=== PATIENT | male | born 1990 | race Caucasian/White ===

== ENCOUNTER 2020-06-13 14:42 | Inpatient (IN) | payer BC, OTHER ==
[~2020-06-13] VITALS: Ht 182.9 cm; Wt 57.6 kg
--- NOTE | 2020-06-13 15:05 | NUR ---
PT PLACED ON BP CUFF, PULSE OX ON ARRIVAL. WAYNE FROM [place] AT BS. SITTER AT DOORWAY FOR CLOSE OBSERVATION.
--- NOTE | 2020-06-13 15:31 | NUR ---
PT TO AND FROM CT WITH SECURITY.
--- NOTE | 2020-06-13 15:40 | NUR ---
MOTHER AT BS. ERP NOTIFIED. AWAITING CT READS
--- NOTE | 2020-06-13 15:56 | NUR ---
CT RESULTS RECHECK.
[2020-06-13] MEDS ORDERED: SODIUM CHLORIDE FLUSH 10ML SYR IVF ONE (17:30)
[2020-06-13] MEDS ORDERED: SODIUM CHLORIDE 0.9% 1,000ML IVBOLUS ONE (17:30)
--- NOTE | 2020-06-13 17:33 | NUR ---
PER ERP, DR SCALES IN TO SEE PT AT 1830 TO EVALUATE. PER PARENT REQUEST, IV PLACED AND IVF GIVEN. SECURITY CALLED TO ROTATE RESTRAINT SITES.
--- NOTE | 2020-06-13 17:35 | NUR ---
PT REFUSING IV. THIS DISCUSSED WITH DR BARNETT. REVIEW OF LABS AND VS. PER DR BARNETT, PT CAN REFUSE IV.
--- NOTE | 2020-06-13 18:21 | NUR ---
MAX/FAC SPECIALIST IN TO SEE PT.
--- NOTE | 2020-06-13 18:58 | NUR ---
BEDSIDE REPORT FROM HARSHIL KRUGER
[2020-06-13] MEDS ORDERED: SODIUM CHLORIDE 0.9% 1,000 ML IV ONE (19:00)
[2020-06-13] MEDS ORDERED: HALOPERIDOL 5 MG/ML IM ONE (19:00)
[2020-06-13] MEDS ORDERED: CEFTRIAXONE PMX 1GM/50ML 50 ML IVPB ONE (19:00)
--- NOTE | 2020-06-13 19:00 | NUR ---
THROUGHPUT RN: IVAN HERNANDEZ, NURSING [facility] [employer] AT [facility] WHO STATES PT IS CURRENTLY ADMITTED TO [facility]. SINCE PT HAS TO BE ADMITTED TO [facility] PT WILL THEREFORE BE DC'D FROM [facility] AND [facility] SITTER WILL DEPART. ONCE PT IS MEDICALLY CLEARED, PT PSYCH PACKET AND LEGAL HOLD WILL HAVE TO BE FAXED OUT TO PSYCH [facility] NEW PT.
--- NOTE | 2020-06-13 19:02 | NUR ---
PER DR BARNETT, PT TO BE ADMITTED AND RECEIVE IVF AND ANTIBIOTICS. PER ERP AND TANK, PT UNABLE TO REFUSE IV. VALET ATTENDANT TO START LINE. REPORT TO MARILEE KRUGER, TRANSFER OF CARE AT THIS TIME.
--- NOTE | 2020-06-13 19:05 | NUR ---
PT SUPINE ON GARIMA DAVALOS, VSS. PT RESTING WITH EYES CLOSED. NO NEEDS AT THIS TIME. RESTRAINTS IN PLACE, CSM INTACT. PT DENIES ANY NEEDS AT THIS TIME. SITTER IN VIEW.
[2020-06-13] MEDS ORDERED: DIPH25CA61 IM (19:20)
[2020-06-13] MEDS ORDERED: OLAN5TAB3 PO (19:20)
[2020-06-13] MEDS ORDERED: SULF-23 PO (19:20)
[2020-06-13] MEDS ORDERED: HALO5AMP3 IM (19:20)
[2020-06-13] MEDS ORDERED: LORA2VIA6 IM/IV (19:20)
[2020-06-13] MEDS ORDERED: HALO5TAB5 PO (19:20)
[2020-06-13] MEDS ORDERED: ARIP20TA5 PO (19:20)
[2020-06-13] MEDS ORDERED: MIRT-37 PO (19:20)
[2020-06-13] MEDS ORDERED: OLAN5TAB3 IM (19:20)
[2020-06-13] MEDS ORDERED: CEPH750C9 PO (19:20)
[2020-06-13 19:24] LABS: BASOPHILS % (AUTO) 1 % (0-1); EOSINOPHILS % (AUTO) 1 % (1-7); LYMPHOCYTES % (AUTO) 20 % (22-44); MEAN CORPUSCULAR HEMOGLOBIN 30.1 pg (27.5-34.5); MEAN CORPUSCULAR HGB CONC 34.4 g/dL (33.2-36.2); MEAN PLATELET VOLUME 7.9 fL (7.4-10.4); MONOCYTES % (AUTO) 7 % (2-9); NEUTROPHILS % (AUTO) 71 % (42-75); PLATELET COUNT 338 x10^3/uL (130-400); RED CELL DISTRIBUTION WIDTH 12.9 % (9.4-14.8)
[2020-06-13] MEDS ORDERED: HALOPERIDOL 5 MG/ML IM PRN (19:30)
[2020-06-13] MEDS ORDERED: POLYETHYLENE GLYCOL 17 GM PACKET PO PRN (19:30)
[2020-06-13] MEDS: AMPICILLIN/SULBACTAM 3 GM in SODIUM CHLORIDE 0.9% 100 ML IV SCH (19:30)
[2020-06-13] MEDS ORDERED: ONDANSETRON 2MG/ML, 2ML IVPush PRN (19:30)
[2020-06-13] MEDS ORDERED: BISACODYL 10 MG SUPP PR PRN (19:30)
[2020-06-13] MEDS ORDERED: ACETAMINOPHEN 325 MG TABLET PO PRN (19:30)
[2020-06-13] MEDS ORDERED: HALOPERIDOL 5 MG/ML ONE (19:31)
[2020-06-13 19:36] LABS: ALANINE AMINOTRANSFERASE 21 U/L (12-78); ALBUMIN 3.4 g/dL (3.4-5.0); ANION GAP 6 mmol/L (5-15); CALCIUM 8.9 mg/dL (8.5-10.1); CHLORIDE 109 mmol/L (98-107); CREATININE 0.73 mg/dL (0.7-1.3)
[2020-06-13 19:38] LABS: ALKALINE PHOSPHATASE 77 U/L (45-117); BILIRUBIN,TOTAL 2.4 mg/dL (0.2-1.0); TOTAL PROTEIN 7.1 g/dL (6.4-8.2)
--- NOTE | 2020-06-13 20:03 | NUR ---
Pt to be admitted to MEDICAL, room 337. Report called to
[2020-06-13 22:15] VITALS: BP 92/59
[2020-06-13] MEDS: D5%-0.45% NACL 1,000 ML IV SCH (22:50)
[2020-06-14 00:04] VITALS: BP 118/72
[2020-06-14] MEDS: AMPICILLIN/SULBACTAM 3 GM in SODIUM CHLORIDE 0.9% 100 ML IV SCH ×4 (02:29→22:02)
[2020-06-14 07:58] VITALS: BP 105/56
[2020-06-14] MEDS: SENNA/DOCUSATE TABLET PO SCH (08:35)
[2020-06-14] MEDS: D5%-0.45% NACL 1,000 ML IV SCH (08:35)
[2020-06-14 12:45] VITALS: BP 111/62
[2020-06-14] MEDS ORDERED: LORazepam 2 MG/ML, 1ML ONE (13:12)
[2020-06-14] MEDS ORDERED: LORazepam 2 MG/ML, 1ML IVPush ONE ×2 (13:30)
[2020-06-14] MEDS: OLANZAPINE 10 MG INJ IM PRN ×2 (16:22→17:45)
[2020-06-14 18:45] VITALS: BP 107/55
[2020-06-15 01:15] VITALS: BP 102/56
[2020-06-15] MEDS: D5%-0.45% NACL 1,000 ML IV SCH (02:10)
[2020-06-15] MEDS: AMPICILLIN/SULBACTAM 3 GM in SODIUM CHLORIDE 0.9% 100 ML IV SCH ×4 (04:10→22:23)
[2020-06-15 05:21] LABS: BASOPHILS % (AUTO) 1 % (0-1); EOSINOPHILS % (AUTO) 6 % (1-7); LYMPHOCYTES % (AUTO) 30 % (22-44); MEAN CORPUSCULAR HEMOGLOBIN 30.5 pg (27.5-34.5); MEAN CORPUSCULAR HGB CONC 34.7 g/dL (33.2-36.2); MEAN PLATELET VOLUME 8.3 fL (7.4-10.4); MONOCYTES % (AUTO) 7 % (2-9); NEUTROPHILS % (AUTO) 56 % (42-75); PLATELET COUNT 284 x10^3/uL (130-400); RED BLOOD COUNT 4.04 x10^6/uL (4.38-5.82); RED CELL DISTRIBUTION WIDTH 12.3 % (9.4-14.8)
[2020-06-15 05:31] LABS: ALANINE AMINOTRANSFERASE 17 U/L (12-78); ALBUMIN 2.8 g/dL (3.4-5.0); ANION GAP 5 mmol/L (5-15); CALCIUM 8.5 mg/dL (8.5-10.1); CHLORIDE 110 mmol/L (98-107)
[2020-06-15 05:34] LABS: ALKALINE PHOSPHATASE 57 U/L (45-117); BILIRUBIN,TOTAL 1.5 mg/dL (0.2-1.0); CREATININE 0.62 mg/dL (0.7-1.3); TOTAL PROTEIN 5.9 g/dL (6.4-8.2)
[2020-06-15] MEDS: OLANZAPINE 10 MG INJ IM PRN ×2 (07:01→17:56)
[2020-06-15 07:06] VITALS: BP 105/63
[2020-06-15] MEDS: SENNA/DOCUSATE TABLET PO SCH (09:00)
[2020-06-15] MEDS: ARIPIPRAZOLE 10 MG TABLET PO SCH (09:00)
[2020-06-15 12:31] VITALS: BP 122/63
[2020-06-15] MEDS: D5%-0.45NACL+KCL 20MEQ 1,000 ML IV SCH (15:30)
[2020-06-15 19:11] VITALS: BP 113/73
[2020-06-16 02:39] VITALS: BP 110/67
[2020-06-16] MEDS: AMPICILLIN/SULBACTAM 3 GM in SODIUM CHLORIDE 0.9% 100 ML IV SCH ×4 (03:47→22:16)
[2020-06-16] MEDS: OLANZAPINE 10 MG INJ IM PRN ×2 (06:56→18:08)
[2020-06-16] MEDS: D5%-0.45NACL+KCL 20MEQ 1,000 ML IV SCH ×2 (07:56→19:54)
[2020-06-16] MEDS: SENNA/DOCUSATE TABLET PO SCH (09:00)
[2020-06-16] MEDS: ARIPIPRAZOLE 10 MG TABLET PO SCH (09:00)
[2020-06-16] MEDS ORDERED: ARIPIPRAZOLE 10 MG TABLET PO SCH (17:30)
[2020-06-16 18:38] VITALS: BP 115/67
[2020-06-17] MEDS: AMPICILLIN/SULBACTAM 3 GM in SODIUM CHLORIDE 0.9% 100 ML IV SCH (04:47)
[2020-06-17] MEDS ORDERED: ARIPIPRAZOLE 10 MG TABLET PO SCH (07:00)
[2020-06-17] MEDS: SENNA/DOCUSATE TABLET PO SCH (07:53)
[2020-06-17] MEDS ORDERED: ARIP10TA33 PO (16:54)
[2020-06-17] MEDS ORDERED: OLAN10VI2 IM (16:54)
== END 2020-06-17 17:56 | DRG 85 ==
LOC: ED 18:40 → EDIP 18:47 → ED 18:53 → 3N 20:16
PROVIDERS: ADMIT Internal Medicine; ATTEND Internal Medicine
DX: S02.0XXA Fracture of vault of skull, initial encounter for closed fracture (principal); E43 Unspecified severe protein-calorie malnutrition; F23 Brief psychotic disorder; Z68.1 Body mass index [BMI] 19.9 or less, adult; Z20.822 Contact with and (suspected) exposure to COVID-19; E86.0 Dehydration; D72.829 Elevated white blood cell count, unspecified; F25.9 Schizoaffective disorder, unspecified; F32.9 Major depressive disorder, single episode, unspecified; Z78.1 Physical restraint status; Z91.14 Patient's other noncompliance with medication regimen; X58.XXXA Exposure to other specified factors, initial encounter; Y93.89 Activity, other specified; Y92.89 Other specified places as the place of occurrence of the external cause; Y99.8 Other external cause status
CPT/HCPCS: 36415; 70450; 70486; 80053; 85025; 87426; 93005; 96372; 99285; G0378; J0295; J1630; J2060; J3480; J7030

== ENCOUNTER 2020-06-17 15:10 | Inpatient (IN) | payer OTHER ==
[~2020-06-17] VITALS: Ht 182.9 cm; Wt 52.0 kg
[~2020-06-17 15:10] MED LIST: ARIP20TA5 PO; CEPH750C9 PO; DIPH25CA61 IM; HALO5AMP3 IM; HALO5TAB5 PO; LORA2VIA6 IM/IV; MIRT-37 PO; OLAN5TAB3 IM; OLAN5TAB3 PO; SULF1TAB24 PO
[2020-06-17] MEDS ORDERED: ONDANSETRON ODT 4 MG PO PRN (15:30)
[2020-06-17] MEDS ORDERED: LORazepam 1MG TABLET PO PRN (15:30)
[2020-06-17] MEDS ORDERED: ACETAMINOPHEN 325 MG TABLET PO PRN (15:30)
[2020-06-17] MEDS ORDERED: BISACODYL 10 MG SUPP PR PRN (15:30)
[2020-06-17] MEDS ORDERED: POLYETHYLENE GLYCOL 17 GM PACKET PO PRN (15:30)
[2020-06-17] MEDS ORDERED: OLAN10VI2 IM (16:54)
[2020-06-17] MEDS ORDERED: ARIP10TA33 PO (16:54)
[2020-06-17 19:39] VITALS: BP 133/92
[2020-06-17] MEDS: OLANZAPINE ODT 10MG PO PRN (19:44)
[2020-06-17 23:22] VITALS: BP 146/84
[2020-06-18] MEDS: PALIPERIDONE 3 MG TAB.ER.24 PO SCH (15:30)
[2020-06-19 07:45] VITALS: BP 123/75
[2020-06-19] MEDS: PALIPERIDONE 3 MG TAB.ER.24 PO SCH (08:16)
[2020-06-20] MEDS: PALIPERIDONE 3 MG TAB.ER.24 PO SCH (08:17)
[2020-06-20] MEDS: ARIPIPRAZOLE 10 MG TABLET PO SCH (08:35)
[2020-06-21] MEDS: ARIPIPRAZOLE 10 MG TABLET PO SCH (09:00)
[2020-06-22] MEDS: ARIPIPRAZOLE 10 MG TABLET PO SCH (08:22)
[2020-06-22] MEDS ORDERED: OLANZAPINE 10 MG INJ IM PRN (16:30)
[2020-06-22 21:24] LABS: MICROSCOPIC NOT IND
[2020-06-23] MEDS: ARIPIPRAZOLE 10 MG TABLET PO SCH (08:13)
[2020-06-23] MEDS: OLANZAPINE ODT 10MG PO PRN (15:54)
[2020-06-24] MEDS: ARIPIPRAZOLE 10 MG TABLET PO SCH (08:51)
[2020-06-25 07:55] VITALS: BP 111/76
[2020-06-25] MEDS: ARIPIPRAZOLE 10 MG TABLET PO SCH (09:00)
[2020-06-26] MEDS: ARIPIPRAZOLE 10 MG TABLET PO SCH (08:07)
[2020-06-26 19:42] VITALS: BP 127/75
[2020-06-27] MEDS: ARIPIPRAZOLE 10 MG TABLET PO SCH (08:38)
[2020-06-27 19:30] VITALS: BP 121/69
[2020-06-28 07:36] VITALS: BP 112/67
[2020-06-28] MEDS ORDERED: ARIPIPRAZOLE 400 MG INJ NC HOMEINJ ONE (09:00)
[2020-06-28] MEDS: ARIPIPRAZOLE 10 MG TABLET PO SCH (09:59)
[2020-06-28 18:44] VITALS: BP 119/62
[2020-06-29 06:34] VITALS: BP 125/80
[2020-06-29] MEDS: ARIPIPRAZOLE 10 MG TABLET PO SCH (08:52)
[2020-06-29] MEDS ORDERED: ARIP10TA33 PO (14:49)
[2020-06-29] MEDS ORDERED: ARIP400S3 HOMEINJ (14:49)
== END 2020-06-29 16:25 | disposition home or self-care (01) | DRG 885 ==
LOC: 3E 18:02
PROVIDERS: ADMIT Psychiatry & Neurology Psychosomatic Medicine; ATTEND Psychiatry & Neurology Psychosomatic Medicine
DX: F25.1 Schizoaffective disorder, depressive type (principal); F33.2 Major depressive disorder, recurrent severe without psychotic features; Z79.899 Other long term (current) drug therapy; Z91.19 Patient's noncompliance with other medical treatment and regimen; Z91.81 History of falling
CPT/HCPCS: 81003